=== PATIENT | female | born 1960 | race Hispanic/Latino ===

== ENCOUNTER 2017-06-12 09:39 | Outpatient (CLI) | payer BC ==
[2017-06-12 10:20] LABS: Hematocrit 45.5 % (30.3-42.9); Mean Corpuscular HGB Conc 33 % (30-34); Mean Corpuscular Hemoglobin 29 pg (28-32); Mean Corpuscular Volume 87 fl (79-97); Platelet Count 350 K/mm3 (140-440); Red Blood Count 5.25 M/mm3 (3.65-5.03); Red Cell Distribution Width 14.2 % (13.2-15.2); White Blood Count 5.2 K/mm3 (4.5-11.0)
[2017-06-12 10:40] LABS: Erythrocyte Sedimentation Rate 4 mm/Hr (0-20)
[2017-06-12 11:41] LABS: Alanine Aminotransferase 12 units/L (7-56); Albumin 4.4 g/dL (3.9-5); Albumin/Globulin Ratio 1.4 %; Alkaline Phosphatase 92 units/L (35-129); Anion Gap 20 mmol/L; Blood Urea Nitrogen 17 mg/dL (7-17); Calcium 9.2 mg/dL (8.4-10.2); Carbon Dioxide 24 mmol/L (22-30); Chloride 100.5 mmol/L (98-107); Creatine Kinase 31 units/L (30-135); Glucose 79 mg/dL (65-100); Iron 66 ug/dL (37-170); Sodium 140 mmol/L (137-145); Total Iron Binding Capacity 379 mcg/dL (250-450); Total Protein 7.5 g/dL (6.3-8.2)
[2017-06-13 15:27] LABS: Vitamin D, 25-OH, Total 23 ng/mL (30-100)
[2017-06-16 08:56] LABS: VITAMIN E ALPHA-TOCOPHERAL 9.1 mg/L (5.7-19.9); VITAMIN E BETA-GAMMA TOCOPHERA 2.3 mg/L (<=4.3)
== END 2017-06-12 09:40 | disposition home or self-care (01) ==
LOC: LAB 09:39
PROVIDERS: ATTEND Specialist
DX: G35 Multiple sclerosis (principal); G65.1 Sequelae of other inflammatory polyneuropathy; E55.9 Vitamin D deficiency, unspecified; R74.8 Abnormal levels of other serum enzymes; R79.89 Other specified abnormal findings of blood chemistry
CPT/HCPCS: 36415; 80053; 82164; 82306; 82525; 82550; 82607; 82747; 83036; 83550; 83735; 83921; 84443; 84446; 84590; 84630; 85027; 85652; 86038; 86225; 86334; 86592

== ENCOUNTER 2021-01-04 09:20 | Outpatient (CLI) | payer BC ==
[2021-01-04 10:12] LABS: Basophils # (Auto) 0.1 K/mm3 (0.0-0.1); Basophils % (Auto) 1.1 % (0.0-1.8); Eosinophils # (Auto) 0.2 K/mm3 (0.0-0.4); Eosinophils % (Auto) 4.1 % (0.0-4.3); Hematocrit 43.7 % (30.3-42.9); Hemoglobin 14.7 gm/dl (10.1-14.3); Lymphocytes # (Auto) 1.2 K/mm3 (1.2-5.4); Lymphocytes % (Auto) 23.8 % (13.4-35.0); Mean Corpuscular HGB Conc 34 % (30-34); Mean Corpuscular Volume 87 fl (79-97); Monocytes # (Auto) 0.5 K/mm3 (0.0-0.8); Platelet Count 301 K/mm3 (140-440); Red Blood Count 5.04 M/mm3 (3.65-5.03); Red Cell Distribution Width 14.9 % (13.2-15.2)
[2021-01-04 10:25] LABS: Alanine Aminotransferase 15 units/L (7-56); Albumin 4.2 g/dL (3.9-5); BUN/Creatinine Ratio 18; Blood Urea Nitrogen 14 mg/dL (7-17); Calcium 8.9 mg/dL (8.4-10.2); Hemolysis Index 3
[2021-01-04 10:38] LABS: Erythrocyte Sedimentation Rate 8 mm/Hr (0-20)
== END 2021-01-04 09:21 | disposition home or self-care (01) ==
LOC: LAB 09:20
PROVIDERS: ATTEND Specialist
DX: G65.1 Sequelae of other inflammatory polyneuropathy (principal)
CPT/HCPCS: 36415; 80053; 82306; 82607; 83036; 83921; 84165; 84443; 85025; 85652; 86038; 86225; 86334; 86592